=== PATIENT | female | born 1965 | race Caucasian/White ===

== ENCOUNTER 2024-11-22 11:35 | Emergency (ER) | payer BC ==
[~2024-11-22] VITALS: Ht 160 cm; Wt 95.3 kg
[2024-11-22] MEDS ORDERED: KETOROLAC TROMETHAMINE 15 MG/ML VIAL ONE ×2 (12:38)
[2024-11-22] MEDS: KETOROLAC TROMETHAMINE 15 MG/ML VIAL IM ONE (12:45)
[2024-11-22] MEDS ORDERED: NAPR-1164 PO (12:58)
[2024-11-22 13:12] VITALS: BP 120/84; TEMP 98; O2SAT 96
== END 2024-11-22 13:13 | disposition home or self-care (01) ==
LOC: ER 11:47
DX: S46.911A Strain of unspecified muscle, fascia and tendon at shoulder and upper arm level, right arm, initial encounter (principal); I10 Essential (primary) hypertension; X58.XXXA Exposure to other specified factors, initial encounter; Y93.89 Activity, other specified; Y92.89 Other specified places as the place of occurrence of the external cause; Y99.8 Other external cause status
CPT/HCPCS: 99283; 96372; J7030; J1885 ×2